=== PATIENT | female | born 1950 | race Caucasian/White ===

== ENCOUNTER → 2022-10-29 | Outpatient (REF) | payer MEDICARE, BC | LOC: M SFHCDERM 12:14 | PROVIDERS: ATTEND Physician Assistant | DX: L57.0 Actinic keratosis (principal) ==

== ENCOUNTER → 2023-09-15 | Outpatient (REF) | payer MEDICARE, BC | LOC: M SFHCWAGY 17:54 | PROVIDERS: ATTEND Nurse Practitioner Family | DX: L90.0 Lichen sclerosus et atrophicus (principal) ==

== ENCOUNTER → 2023-10-15 | Outpatient (CLI) | payer MEDICARE, BC | LOC: M WHC 10:08 | PROVIDERS: ATTEND Nurse Practitioner Family | DX: Z12.31 Encounter for screening mammogram for malignant neoplasm of breast (principal) ==

== ENCOUNTER → 2024-08-15 | Outpatient (CLI) | payer MEDICARE, BC | LOC: M WHC 10:13 | PROVIDERS: ATTEND Nurse Practitioner Family | DX: N63.32 Unspecified lump in axillary tail of the left breast (principal); R92.333 Mammographic heterogeneous density, bilateral breasts | CPT/HCPCS: 77066; G0279 ==